=== PATIENT | male | born 1945 | race Caucasian/White ===

== ENCOUNTER 2020-08-05 03:00 | Emergency (ER) | payer MEDICARE, MEDICAID, SELFPAY ==
[2020-08-05] VITALS (16 sets, daily range): BP systolic 80–127; BP diastolic 49–60; PULSE 86–104; RESP 18; TEMP 36.5; O2SAT 91–95; BMI 26.3
--- NOTE | 2020-08-05 03:06 | ED.GENADULT ---
HPI - General Adult General Chief complaint: Recheck/Abnormal Lab/Rx Stated complaint: Decreased LOC low blood sugar Time Seen by Provider: 08/05/20 03:05 Source: patient and EMS Mode of arrival: EMS Limitations: no limitations History of Present Illness HPI narrative: Patient is a 75-year-old male an insulin-dependent diabetic who resides at a care facility across the street from the hospital brought in by EMS for concerns of hypoglycemia and inability to talk. He EMS reports they were called to the care facility secondary to the patient being unresponsive. Upon their arrival they found his blood sugar in the 30s. He received D10 which increased his blood sugar to the 140s. While he was recovering EMS reports that he became much more alert however was unable to speak. He could gesture to the paramedics that he was having problems speaking. Secondary to this they brought him to the emergency department. By the time he arrived here his symptoms have completely resolved. Patient states that he feels fine. He states that he took his normal dose of insulin last evening. He states that he did have dinner last evening. He is unsure why his blood sugar was a bit low this morning. Review of Systems Cardiovascular Cardiovascular: Denies chest pain and Denies dyspnea Respiratory Respiratory: Denies dyspnea Gastrointestinal Gastrointestinal: Denies abdominal pain Neurologic Comments: Problems speaking Endocrine Comments: Hypoglycemia Patient History Medical History Insulin dependent diabetes mellitus (Acute) Social History Smoking Status: Former smoker Exam Initial Vital Signs Initial Vital Signs: Vital Signs Temperature 97.7 F 08/05/20 03:07 Pulse Rate 90 08/05/20 03:07 Respiratory Rate 18 08/05/20 03:07 Blood Pressure 127/58 L 08/05/20 03:07 Pulse Oximetry 91 08/05/20 03:07 Const General: cooperative, comfortable and well developed Limitations: mental status not altered HENMT Head: normal to inspection and normocephalic Resp Effort & Inspection: normal respiratory effort Auscultation: clear to auscultation bilaterally Cardio Rate: regular rate Rhythm: regular rhythm Neuro General: patient alert, patient awake and patient oriented x3 Cognition: normal cognition Speech: speech normal Psych Appearance: grossly normal and well kempt Course Orders Ordered: ED Orders 11/01/20 03:23 Basic Metabolic Panel Stat Complete Blood Count AUTO DIFF Stat Vital Signs Vital signs: Vital Signs - 8 hr 08/05/20 03:07 08/05/20 04:03 08/05/20 04:04 Temperature 97.7 F Pulse Rate 90 95 H 93 H Respiratory Rate 18 Blood Pressure 127/58 L 85/52 L 92/53 L Pulse Oximetry 91 93 08/05/20 04:10 08/05/20 04:20 08/05/20 04:30 Temperature Pulse Rate 92 H 86 91 H Respiratory Rate Blood Pressure 80/49 L 104/51 L 99/50 L Pulse Oximetry 92 94 93 08/05/20 04:41 Temperature Pulse Rate 90 Respiratory Rate Blood Pressure 110/51 L Pulse Oximetry 94 Medical Decision Making Lab Data Lab results reviewed: Yes I reviewed the patient's lab results. Result diagrams: 08/05/20 03:23 08/05/20 03:23 Labs: Lab Results 08/05/20 08/05/20 Range/Units 03:23 03:23 WBC 8.0 (4.5-11.0) X10^3/uL RBC 4.12 L (4.5-5.9) X10^6/uL Hgb 10.9 L (13.5-17.5) g/dL Hct 35.0 L (41-53) % MCV 85.0 (80-100) fL MCH 26.5 (26-34) PG MCHC 31.2 (30-36) % RDW 17.2 H (11.6-14.8) % Plt Count 184 (150-400) X10^3/uL Neut % (Auto) 89.1 H (50-75) % Lymph % (Auto) 4.5 L (25-40) % [place] % (Auto) 3.0 (3-14) % Eos % (Auto) 1.8 L (2-4) % Baso % (Auto) 1.6 (0-2) % Neut # (Auto) 7200 H (3380-0720) /uL Lymph # (Auto) 400 L (9077-7618) /uL [place] # (Auto) 200 (0-900) /uL Eos # (Auto) 100 (0-450) /uL Baso # (Auto) 100 (0-100) /uL Sodium 137 (137-145) mmol/L Potassium 4.4 (3.4-5.1) mmol/L Chloride 106 (98-107) mmol/L Carbon Dioxide 25 (22-32) mmol/L BUN 38 H (9-20) mg/dL Creatinine 1.51 H (0.66-1.25) mg/dL Estimated GFR 45.4 L (>60) mL/min BUN/Creatinine Ratio 25.2 H (6-22) Glucose 174 H (80-110) mg/dL Calcium 8.8 (8.4-10.2) mg/dL Point of Care Testing Glucose POC 159 Point of care testing: Point of Care Testing Glucose POC 159 MDM Narrative Medical decision making narrative: Patient's blood sugar the 140s upon arrival. He was speaking appropriately. Alert oriented x3. GCS of 15. He states that he felt back to normal. He was given food to eat. We rechecked his blood sugar several times with the next couple hours and they were all greater than 150. Low suspicion for CVA. Will discharge patient back to his care facility. Discharge Plan Departure Patient Disposition: Home Clinical Impression: Hypoglycemia Instructions: Hypoglycemia Activity Restrictions/Additional Instructions: I recommend to continue all of your medications as directed to include your insulin at the sliding scale provided by your provider. Return to the emergency department for any new or worsening symptoms
[2020-08-05 03:33] LABS: Add Manual Diff / Slide Review NO; Basophils Absolute Auto 100 /uL (0-100); Basophils Percent Auto 1.6 % (0-2); Eosinophils Absolute Auto 100 /uL (0-450); Eosinophils Percent Auto 1.8 % (2-4); Hemoglobin 10.9 g/dL (13.5-17.5); Lymphocytes Absolute Auto 400 /uL (1100-4500); Lymphocytes Percent Auto 4.5 % (25-40); Mean Corpuscular HGB Conc 31.2 % (30-36); Mean Corpuscular Hemoglobin 26.5 PG (26-34); Monocytes Absolute Auto 200 /uL (0-900); Neutrophils Absolute Auto 7200 /uL (1500-7000); Neutrophils Percent Auto 89.1 % (50-75); Platelet Count 184 X10^3/uL (150-400); Red Blood Cell Count 4.12 X10^6/uL (4.5-5.9); Red Cell Distribution Width 17.2 % (11.6-14.8)
[2020-08-05 03:42] LABS: BUN Creatinine Ratio 25.2 (6-22); Blood Urea Nitrogen 38 mg/dL (9-20); Calcium 8.8 mg/dL (8.4-10.2); Carbon Dioxide 25 mmol/L (22-32); Chloride 106 mmol/L (98-107); Estimated Glomerular Filt Rate 45.4 mL/min (>60); Glucose 174 mg/dL (80-110); HEMOLYSIS < 15 (0-50); Potassium 4.4 mmol/L (3.4-5.1); Sodium 137 mmol/L (137-145)
== END 2020-08-05 06:20 | disposition home or self-care (01) ==
PROVIDERS: Emergency Provider Emergency Medicine
DX: E11.649 Type 2 diabetes mellitus with hypoglycemia without coma (principal)
CPT/HCPCS: 36415; 80048; 82962; 85025; 99283

== ENCOUNTER → 2020-08-15 10:19 | Outpatient (CLI) | payer MEDICARE, SELFPAY ==
[2020-08-15 12:26] LABS: Add Manual Diff / Slide Review NO; Basophils Absolute Auto 100 /uL (0-100); Eosinophils Absolute Auto 400 /uL (0-450); Hematocrit 30.3 % (41-53); Hemoglobin 9.7 g/dL (13.5-17.5); Lymphocytes Absolute Auto 1100 /uL (1100-4500); Mean Corpuscular Hemoglobin 26.6 PG (26-34); Mean Corpuscular Volume 83.2 fL (80-100); Monocytes Absolute Auto 600 /uL (0-900); Monocytes Percent Auto 9.4 % (3-14); Neutrophils Absolute Auto 4000 /uL (1500-7000); Neutrophils Percent Auto 64.6 % (50-75); Platelet Count 208 X10^3/uL (150-400); Red Blood Cell Count 3.64 X10^6/uL (4.5-5.9); Red Cell Distribution Width 17.1 % (11.6-14.8); White Blood Cell Count 6.2 X10^3/uL (4.5-11.0)
[2020-08-15 12:49] LABS: Prothrombin Time 73.7 SECONDS (10.1-12.7)
[2020-08-15 12:51] LABS: Alanine Aminotransferase 14 IU/L (<50); Albumin 3.5 g/dL (3.5-5.0); Alkaline Phosphatase 74 U/L (38-126); Aspartate Aminotransferase 18 IU/L (17-59); BUN Creatinine Ratio 17.5 (6-22); Bilirubin Total 0.3 mg/dL (0.2-1.3); Blood Urea Nitrogen 48 mg/dL (9-20); C-Reactive Protein Quant 2.5 mg/dL (<1.0); Calcium 8.9 mg/dL (8.4-10.2); Carbon Dioxide 20 mmol/L (22-32); Chloride 108 mmol/L (98-107); Estimated Glomerular Filt Rate 22.7 mL/min (>60); Globulin 3.6 g/dL (1.7-4.1); Glucose 210 mg/dL (80-110); HEMOLYSIS < 15 (0-50); Sodium 135 mmol/L (137-145); Total Protein 7.1 g/dL (6.3-8.2)
[2020-08-15 13:25] LABS: Potassium 7.5 mmol/L (3.4-5.1)
[2020-08-15 13:26] LABS: INR 6.5 (0.9-1.3)
== END ==
PROVIDERS: Visit Provider Family Medicine
DX: Z79.01 Long term (current) use of anticoagulants (principal)
CPT/HCPCS: 36415; 80053; 85025; 85610; 86140

== ENCOUNTER 2020-08-15 14:04 | Inpatient (IN) | payer MEDICARE, SELFPAY ==
[2020-08-15 14:13] VITALS: BP 136/67; PULSE 70; RESP 18; TEMP 36.6; O2SAT 100
--- NOTE | 2020-08-15 14:24 | DI.RAD.S_ITS ---
PROCEDURE: XR CHEST 1V INDICATIONS: hyperkalemia TECHNIQUE: One view of the chest was acquired. COMPARISON: None. FINDINGS: Surgical changes and devices: None. Lungs and pleura: Lungs are clear. No pleural effusions or pneumothorax. Mediastinum: Mediastinal contours appear normal. Heart size is normal. Bones and chest wall: No suspicious bony lesions. Overlying soft tissues appear unremarkable. IMPRESSION: No acute process. Dictated by: Jake Bennett M.D. on 08/15/2020 at 14:51 Approved by: Jake Bennett M.D. on 08/15/2020 at 14:51
--- NOTE | 2020-08-15 14:27 | ED.RECABL ---
HPI - Recheck/Abnormal Lab/Rx General Chief Complaint: Recheck/Abnormal Lab/Rx Stated Complaint: abnormal labs, sent to ER Time Seen by Provider: 08/15/20 14:23 Source: patient and other Mode of arrival: Ambulatory Limitations: no limitations History of Present Illness HPI narrative: This is a 75-year-old male who comes to emergency department for abnormal labs. Patient had his labs drawn after follow up with his infectious disease physician. He states that they were trying to evaluate if they should stop antibiotics. Some of them have already been stopped, he is continuing to take 1 antibiotic currently. This was for a ulcer that required surgical treatment for gangrene on his left and he has a small ulcer on his right heel. Patient states that he has not had any issues with elevated potassium or renal dysfunction in the past. He states he did have stents placed in his left lower extremity prior to his surgery in April and then had his surgery. Patient denies any fevers, no chest pain or shortness of breath, no nausea, no vomiting no other GI or urinary symptoms. Patient is on warfarin for history of OR, takes antihypertensives, atorvastatin and metoclopramide. He also has an insulin-dependent diabetic and is on Lantus and Novolin. He denies tobacco he quit in April. His primary care physician is Dr. Jimenez. 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 No JVD. RESPIRATORY: Breath sounds equal bilaterally, no wheezes rales or rhonchi. ABDOMEN: Soft, nontender. Normoactive bowel sounds all 4 quadrants. No guarding or rebound, rigidity, no mass : No CVA tenderness EXTREMITIES: Normal range of motion, no clubbing or edema. Neurovascularly intact NEUROLOGICAL: Cranial nerves II through XII grossly intact. Moving all extremities SKIN: Warm, dry, no petechiae. Patient has bandages on his right lower extremity, he has a for a/question on his left lower extremity. Initial Vital Signs Initial Vital Signs: Vital Signs Temperature 97.9 F 08/15/20 14:13 Pulse Rate 70 08/15/20 14:13 Respiratory Rate 18 08/15/20 14:13 Blood Pressure 136/67 08/15/20 14:13 Pulse Oximetry 100 08/15/20 14:13 Scores GCS [place] coma scale eye opening: Spontaneous [place] coma scale verbal response: Orientated [place] coma scale motor response: Obey commands [place] coma scale total score: 15 Course Orders Ordered: ED Orders 08/15/20 14:10 EKG-12 Lead Routine 08/15/20 14:24 XR chest 1V Stat 08/15/20 15:20 Basic Metabolic Panel Stat Complete Blood Count AUTO DIFF Stat Magnesium Stat Partial Thromboplastin Time Stat Prothrombin Time INR Stat Thyroid Stimulating Hormone Stat Troponin & CK Cardiac Panel Stat Sodium Bicarbonate 50 meq/ (Sodium Chloride) 1,050 mls @ 125 mls/hr IV CONT BRIDGETTE Last Admin: 08/15/20 16:07 Dose: 125 mls/hr Documented by: GEOFF Discontinued Medications Dextrose (D50w) 25 gm IV NOW ONE Stop: 08/15/20 15:47 Last Admin: 08/15/20 16:07 Dose: 25 gm Documented by: GEOFF Sodium Chloride (Normal Saline 0.9%) 1,000 mls @ 1,000 mls/hr IV BOLUS ONE Stop: 08/15/20 15:22 Last Infusion: 08/15/20 16:49 Dose: 0 mls/hr Documented by: Admin: 08/15/20 15:29 Dose: 1,000 mls/hr Documented by: GEOFF Calcium Gluconate 4.65 meq/ (Sodium Chloride) 60 mls @ 180 mls/hr IV NOW ONE Stop: 08/15/20 14:45 Last Infusion: 08/15/20 16:17 Dose: 0 mls/hr Documented by: Admin: 08/15/20 15:29 Dose: 180 mls/hr Documented by: GEOFF Sodium Chloride (Normal Saline 0.9%) 1,000 mls @ 1,000 mls/hr IV BOLUS ONE Stop: 08/15/20 17:42 Last Admin: 08/15/20 17:27 Dose: Not Given Documented by: GEOFF Insulin Human Regular (Humulin R) 5 unit IV NOW ONE Stop: 08/15/20 15:47 Last Admin: 08/15/20 16:06 Dose: 5 unit Documented by: GEOFF Cosigned by: IRINAONEEulalia Sodium Polystyrene Sulfonate (Kayexalate) 30 gm PO NOW ONE Stop: 08/15/20 15:47 Last Admin: 08/15/20 16:07 Dose: 30 gm Documented by: GEOFF Reevaluation(s) Reevaluation #1: Patient has no additional changes in department, he does need to urinate. We did discuss his lab findings today and that both his supratherapeutic INR is dangerous his if he falls he could easily have a bleed or spontaneous bleed, we also discussed his elevated creatinine and potassium are dangerous and if he were to go home today as he does not initially wish to be hospitalized he would likely over the next several days. Consultations Consultation #1: Dr. Lopez accepts for observation. Vital Signs Vital signs: Vital Signs - 8 hr 08/15/20 14:13 Temperature 97.9 F Pulse Rate 70 Respiratory Rate 18 Blood Pressure 136/67 Pulse Oximetry 100 MDM - Recheck/Abnormal Lab/Rx Lab Data Result diagrams: 08/15/20 15:20 08/15/20 15:20 Labs: Lab Results 08/15/20 08/15/20 08/15/20 Range/Units 15:20 15:20 15:20 WBC 6.7 (4.5-11.0) X10^3/uL RBC 3.59 L (4.5-5.9) X10^6/uL Hgb 9.6 L (13.5-17.5) g/dL Hct 29.7 L (41-53) % MCV 82.8 (80-100) fL MCH 26.6 (26-34) PG MCHC 32.2 (30-36) % RDW 17.0 H (11.6-14.8) % Plt Count 196 (150-400) X10^3/uL Neut % (Auto) 56.8 (50-75) % Lymph % (Auto) 23.3 L (25-40) % [place] % (Auto) 11.0 (3-14) % Eos % (Auto) 7.6 H (2-4) % Baso % (Auto) 1.3 (0-2) % Neut # (Auto) 3800 (9449-3480) /uL Lymph # (Auto) 1600 (6743-2232) /uL [place] # (Auto) 700 (0-900) /uL Eos # (Auto) 500 H (0-450) /uL Baso # (Auto) 100 (0-100) /uL PT 75.8 H (10.1-12.7) SECONDS INR 6.7 H* (0.9-1.3) APTT 58 H (26.4-36.2) SECONDS Sodium 135 L (137-145) mmol/L Potassium 6.3 H* D (3.4-5.1) mmol/L Chloride 108 H (98-107) mmol/L Carbon Dioxide 23 (22-32) mmol/L BUN 48 H (9-20) mg/dL Creatinine 2.68 H (0.66-1.25) mg/dL Estimated GFR 23.4 L (>60) mL/min BUN/Creatinine Ratio 17.9 (6-22) Glucose 171 H (80-110) mg/dL Calcium 8.9 (8.4-10.2) mg/dL Magnesium 1.3 L (1.6-2.3) mg/dL Total Creatine Kinase 49 L (55-170) U/L CK-MB (CK-2) TNP CK-MB (CK-2) Rel Index TNP Troponin I 0.016 (0.01-0.034) ng/mL TSH (0.47-4.68) uIU/mL 08/15/20 Range/Units 15:20 WBC (4.5-11.0) X10^3/uL RBC (4.5-5.9) X10^6/uL Hgb (13.5-17.5) g/dL Hct (41-53) % MCV (80-100) fL MCH (26-34) PG MCHC (30-36) % RDW (11.6-14.8) % Plt Count (150-400) X10^3/uL Neut % (Auto) (50-75) % Lymph % (Auto) (25-40) % [place] % (Auto) (3-14) % Eos % (Auto) (2-4) % Baso % (Auto) (0-2) % Neut # (Auto) (3996-4307) /uL Lymph # (Auto) (7860-3836) /uL [place] # (Auto) (0-900) /uL Eos # (Auto) (0-450) /uL Baso # (Auto) (0-100) /uL PT (10.1-12.7) SECONDS INR (0.9-1.3) APTT (26.4-36.2) SECONDS Sodium (137-145) mmol/L Potassium (3.4-5.1) mmol/L Chloride (98-107) mmol/L Carbon Dioxide (22-32) mmol/L BUN (9-20) mg/dL Creatinine (0.66-1.25) mg/dL Estimated GFR (>60) mL/min BUN/Creatinine Ratio (6-22) Glucose (80-110) mg/dL Calcium (8.4-10.2) mg/dL Magnesium (1.6-2.3) mg/dL Total Creatine Kinase (55-170) U/L CK-MB (CK-2) CK-MB (CK-2) Rel Index Troponin I (0.01-0.034) ng/mL TSH 3.83 (0.47-4.68) uIU/mL Urine Dip Bedside Urine Glucose 250 mg/dl Bedside Urine Bilirubin - Negative Bedside Urine Ketone - Negative Urine Specific [employer] 1.025 Bedside Urine Occult Blood - Negative Bedside Urine pH 6.0 Bedside Urine Protein - Negative Bedside Urine Urobilinogen - Negative Bedside Urine Nitrite - Negative Bedside Urine Leukocytes - Negative Esterase Imaging Data Chest x-ray: Radiologist's Impression: [address] [address] XRay Report Signed Patient: Geovani Delaney EMR#: [id number] : 6Acct:[id number] Age/Sex: 75 / MDate of Service: 08/15/20 Loc: ED Accession Number: [id number] Procedure: XR chest 1V Ordering Provider: Leonor Hanson D.O. PROCEDURE: XR CHEST 1V INDICATIONS: hyperkalemia TECHNIQUE: One view of the chest was acquired. COMPARISON: None. FINDINGS: Surgical changes and devices: None. Lungs and pleura: Lungs are clear. No pleural effusions or pneumothorax. Mediastinum: Mediastinal contours appear normal. Heart size is normal. Bones and chest wall: No suspicious bony lesions. Overlying soft tissues appear unremarkable. IMPRESSION: No acute process. Dictated by: Jake Bennett M.D. on 08/15/2020 at 14:51 Approved by: Jake Bennett M.D. on 08/15/2020 at 14:51 ECG Data Attestation: I personally reviewed and interpreted this ECG as follows: Interpretation: Atrial rhythm, rate of 78, TN 122, QRS of 116 and QTC of 430. Patient has to wave inversion in the 1 aVL, no elevation clearly appreciated questionable change versus artifact in V1 2 and 3. Patient does not have peaked T-waves throughout. Patient has prior EKG from 07/10/2020 does show Q-wave T-wave inversion in 1 and aVL. He also has new changes in V1 2 and 3 had a right bundle branch block with left anterior fascicular block on prior EKG. MDM Narrative Medical decision making narrative: Discussed with patient we will repeat labs to evaluate for lab flat patient's elevation in creatinine I suspect this is a true elevation. We did discuss patient's code status he is comfortable with CPR and electric shock but does not wish for intubation. He is okay with IV medications. There was some delay in obtaining labs as he was a difficult and lab draw. Patient was given your fluids, calcium gluconate potassium is moving on recheck but he is also still quite elevated at 6.3 with supratherapeutic INR and acute on chronic renal failure. Patient was given 1 amp of bicarb, insulin with the glucose, and sodium bicarb. Discussed patient's DNR status he states he is okay with coding were CPR and electric shock but does not wish to be intubated. He did continue to make urine in the department had 150 cc out here in the ED. he does have some nonspecific EKG changes. Discussed with Dr. Lopez who accepts for observation. Dr. Lopez does ask that we obtain records and we were able to get discharge summary which was sent with patient upstairs. Critical Care Time Critical Care Time Critical Care Time: Yes Total Critical Care Time: 75 Attestation: The high probability of a clinically significant, sudden or life threatening deterioration of the [cardiac/renal] system(s) required my full and direct attention, intervention and personal management. The aggregate critical care time was [] minutes. This time is in addition to time spent performing reported procedures but includes the following: [x] Data Review and interpretation [x] Patient assessment and monitoring of vital signs [x] Documentation [x] Medication orders and management Discharge Plan Departure Patient Disposition: Admitted as Observation Clinical Impression: Acute hyperkalemia, Acute on chronic kidney failure, Supratherapeutic INR Discharge Date/Time: 08/15/20 17:29 Admit Date/Time: 08/15/20 16:59 Admit Provider: Reginaldo Lopez
[2020-08-15 15:27] LABS: Add Manual Diff / Slide Review NO; Basophils Absolute Auto 100 /uL (0-100); Basophils Percent Auto 1.3 % (0-2); Eosinophils Absolute Auto 500 /uL (0-450); Eosinophils Percent Auto 7.6 % (2-4); Hematocrit 29.7 % (41-53); Hemoglobin 9.6 g/dL (13.5-17.5); Lymphocytes Absolute Auto 1600 /uL (1100-4500); Lymphocytes Percent Auto 23.3 % (25-40); Mean Corpuscular HGB Conc 32.2 % (30-36); Mean Corpuscular Hemoglobin 26.6 PG (26-34); Mean Corpuscular Volume 82.8 fL (80-100); Monocytes Absolute Auto 700 /uL (0-900); Neutrophils Absolute Auto 3800 /uL (1500-7000); Neutrophils Percent Auto 56.8 % (50-75); Platelet Count 196 X10^3/uL (150-400); Red Blood Cell Count 3.59 X10^6/uL (4.5-5.9); White Blood Cell Count 6.7 X10^3/uL (4.5-11.0)
[2020-08-15] MEDS: CALCIUM GLUCONATE 4.65 MEQ in SODIUM CHLORIDE 0.9% 50 ML 180 ML IV (15:29)
[2020-08-15] MEDS: SODIUM CHLORIDE 0.9% 1,000 ML 1000 ML IV (15:29)
[2020-08-15 15:35] LABS: Prothrombin Time 75.8 SECONDS (10.1-12.7)
[2020-08-15 15:37] LABS: PTT Partial Thromboplastin Tim 58 SECONDS (26.4-36.2)
[2020-08-15 15:38] LABS: BUN Creatinine Ratio 17.9 (6-22); Blood Urea Nitrogen 48 mg/dL (9-20); Calcium 8.9 mg/dL (8.4-10.2); Carbon Dioxide 23 mmol/L (22-32); Chloride 108 mmol/L (98-107); Creatine Kinase 49 U/L (55-170); Estimated Glomerular Filt Rate 23.4 mL/min (>60); Glucose 171 mg/dL (80-110); HEMOLYSIS < 15 (0-50); Magnesium 1.3 mg/dL (1.6-2.3); Sodium 135 mmol/L (137-145)
[2020-08-15 15:41] LABS: INR 6.7 (0.9-1.3); Potassium 6.3 mmol/L (3.4-5.1)
--- NOTE | 2020-08-15 15:44 | PC.NURSE ---
no complaints at this time. Very eager to get back home.
[2020-08-15 15:50] LABS: Troponin I 0.016 ng/mL (0.01-0.034)
[2020-08-15] MEDS: INSULIN REGULAR 100 UNIT/ML 3 ML VIAL IV (16:06)
[2020-08-15] MEDS: SODIUM POLYSTYRENE SULFON/SORB 15 GM/60 ML CUP 30 GM PO (16:07)
[2020-08-15] MEDS: SODIUM BICARB 8.4% VIAL 50 MEQ in SODIUM CHLORIDE 0.9% 1,000 ML 125 MEQ IV (16:07)
[2020-08-15] MEDS: DEXTROSE 50 % IN WATER 25 GM/50 ML SYRINGE IV (16:07)
[2020-08-15 16:55] LABS: Thyroid Stimulating Hormone 3.83 uIU/mL (0.47-4.68)
[2020-08-15 17:56] LABS: COVID19 -Nasal RAPID Negative (Negative)
[2020-08-15 18:18] VITALS: BMI 24.5
[2020-08-15 18:24] VITALS: BP 142/79; PULSE 84; RESP 20; TEMP 36.4; O2SAT 100
[2020-08-15] MEDS: MAGNESIUM SULFATE 2 GM/50 ML PIGGYBACK IV (20:08)
--- NOTE | 2020-08-15 21:33 | PC.NURSE ---
Dsg change to bilateral feet. Left w/ 4x4 gauze & kerlix, over a fifty cent piece size open wound. (appears shallow). Right w/ larger open area w/small amount oozing. 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 Continue to monitor.
[2020-08-15 22:17] VITALS: BP 126/72; PULSE 80; RESP 18; TEMP 36.6; O2SAT 96
--- NOTE | 2020-08-15 22:33 | PM.HP.1 ---
History of Present Illness History of Present Illness Date Patient Seen: 08/15/20 Time Patient Seen: 20:02 Chief complaint: abnormal labs, sent to ER Narrative: Pt is a 75 year old male who came to the ER c/o diarrhea up to 10 x's liquid stools per day. Patient was found have CESARIO and hyperkalemia and hypo magnesium. Patient is alert and orientated and resting comfortably in bed at this time. Patient states that he spent 5 weeks in [facility] for wound care and on a wound VAC and has been back at the [facility] for the past 9 days with his who has beginning stages of dementia. Patient states that he had a normal bowel movement this morning but has a decreased appetite over the past several days he had a banana & fudgecicle for breakfast denies Pain, nausea vomiting has had no diarrhea today denies changes in vision, headache, weakness, chest pain, palpitation, shortness of breath, no abdominal pain, dysuria frequency urgency. Pt had been C Diff positive in early aug and was placed on Vancomy x 10 days. which he completed prior to ER visit today. Patient was being treated for left diabetic foot infection ulceration with cellulitis, necrosis of the Achilles and suspected osteo of the left calcaneus. Culture showed GP G strep and Staph aureus on 04/12/2020 blood culture on 04/11/2021 at 0 4. Patient was revascularized on 04/17 by IR and had debridement and wound VAC placed on 04/18 patient had completed 6 weeks of IV antibiotics Ancef on May 30 for this wound. Patient's infectious disease doctor is Dr. Estrella, PCP Dr. Jimenez, and Dr. Dr. Moon Podiatry. Pt came to the emergency department for abnormal labs. Patient had his labs drawn after follow up with his infectious disease physician. He states that they were trying to evaluate if they should stop antibiotics. Some of them have already been stopped, he is continuing to take 1 antibiotic currently. This was for a ulcer that required surgical treatment for gangrene on his left and he has a small ulcer on his right heel. Patient states that he has not had any issues with elevated potassium or renal dysfunction in the past. He states he did have stents placed in his left lower extremity prior to his surgery in April and then had his surgery. Patient denies any fevers, no chest pain or shortness of breath, no nausea, no vomiting no other GI or urinary symptoms. Patient is on warfarin for history of TN, takes antihypertensives, atorvastatin and metoclopramide. He also has an insulin-dependent diabetic and is on Lantus and Novolin. He denies tobacco he quit in April. His primary care physician is Dr. Jimenez. Patient History Medical History (Updated 08/15/20 @ 23:18 by MECHE Reagan) Acute osteomyelitis of left calcaneus (Acute) Amputation of fourth toe, left, traumatic (Acute) Apical mural thrombus following TN (Acute) Cancer (Acute) Cigarette nicotine dependence without complication (Acute) Diabetic gastropathy (Acute) Eccrine porocarcinoma of skin (Acute) Hyperlipidemia associated with type 2 diabetes mellitus (Acute) Insulin dependent diabetes mellitus (Acute) Ischemic cardiomyopathy (Acute) Right hip pain (Acute) Right knee pain (Acute) Stenosis of artery of left lower extremity (Acute) Surgical History (Updated 08/15/20 @ 23:07 by MECHE Reagan) Amputation of left index finger (Acute) Status post excisional debridement (Acute) Family & Social History Family History (Updated 08/15/20 @ 23:00 by MECHE Reagan) Mother Diabetes mellitus Social History: household members spouse Safety & Behavioral: Feels Safe in Current Yes Environment Suicidal Ideation Description None Suicide Plan Description No Plan Tobacco & Substance use: Smoking Status Former smoker alcohol intake frequency holiday/special occasion Substance Use Type does not use Meds Home Medications and Allergies Home Medications Medication Instructions Recorded Confirmed Type atorvastatin 20 mg PO DAILY 08/15/20 08/15/20 History carvedilol 6.25 mg PO BID 08/15/20 08/15/20 History clopidogrel 75 mg PO DAILY 08/15/20 08/15/20 History ferrous sulfate 325 mg PO BID 08/15/20 08/15/20 History insulin glargine [Lantus Solostar 1 unit SUBCUT PRN PRN MDD PRN 08/15/20 08/15/20 History U-100 Insulin] insulin lispro [Humalog KwikPen 1 unit SUBCUT ACHS 08/15/20 08/15/20 History Insulin] lisinopril 5 mg PO QAM 08/15/20 08/15/20 History loratadine [Allergy Relief 10 mg PO PRN PRN 08/15/20 08/15/20 History (loratadine)] melatonin 3 mg PO BEDTIME PRN MDD prn 08/15/20 08/15/20 History metoclopramide HCl 10 mg PO BID 08/15/20 08/15/20 History nicotine 14 mg TRANSDERMAL DAILY 08/15/20 08/15/20 History pen needle,diabetic dual safty [BD 08/15/20 08/15/20 History AutoShield Duo Pen Needle] Allergies Allergy/AdvReac Type Severity Reaction Status Date / Time No Known Drug Allergies Allergy Verified 08/05/20 05:07 Review of Systems Review of Systems ROS: Yes All systems reviewed with the patient and are negative except as otherwise documented Exam Vital Signs (past 8 hours): - 08/15/20 18:24 08/15/20 22:17 Temperature 97.6 F 97.9 F Pulse Rate 84 80 Respiratory Rate 20 18 Blood Pressure 142/79 H 126/72 Pulse Oximetry 100 96 Oxygen Delivery Method Room Air Narrative Exam Narrative: GENERAL: Alert and oriented male resting bed, in no acute distress at this time HEENT: Head normocephalic, atraumatic, EOMI, pupils reactive, face symmetric, moist mucous membranes NECK: Supple, full range of motion no JVD CARDIOVASCULAR: Regular rate and rhythm without murmurs, rubs or gallops. RESPIRATORY: Breath sounds equal bilaterally, no wheezes rales or rhonchi. ABDOMEN: Soft, nontender. Normoactive bowel sounds all 4 quadrants. No guarding or rebound, rigidity, no mass : No CVA tenderness EXTREMITIES: Normal range of motion, left foot heel posterior lateral aspect length 5.1 cm by with of 5.6 cm and a depth of 0.6 cm with open wound/ulceration with no surrounding erythema or any purulence from wound, right heel posterior ulceration 1.7 cm in length 1.2 cm in with 0.2 cm in depth. Note amputation of left 4th and 5th digits positive +2 edema to the left foot pulses intact bilaterally, patient has loss of pain bilaterally and decreased sensation in the left foot, present in the right foot. Note amputation of left index finger. NEUROLOGICAL: Cranial nerves II through XII grossly intact. Moving all extremities SKIN: Warm, dry, scaling, patient has noted bruising present to bilateral hands and wrist. Note left foot foot is cooler to touch than right. Initial Vital Signs Objective Labs Result Diagrams: 08/15/20 15:20 08/15/20 15:20 Labs: Laboratory Results - last 24 hr 08/15/20 08/15/20 08/15/20 15:20 15:20 15:20 WBC 6.7 RBC 3.59 L Hgb 9.6 L Hct 29.7 L MCV 82.8 MCH 26.6 MCHC 32.2 RDW 17.0 H Plt Count 196 Neut % (Auto) 56.8 Lymph % (Auto) 23.3 L [place] % (Auto) 11.0 Eos % (Auto) 7.6 H Baso % (Auto) 1.3 Neut # (Auto) 3800 Lymph # (Auto) 1600 [place] # (Auto) 700 Eos # (Auto) 500 H Baso # (Auto) 100 PT 75.8 H INR 6.7 H* APTT 58 H Sodium 135 L Potassium 6.3 H* D Chloride 108 H Carbon Dioxide 23 BUN 48 H Creatinine 2.68 H Estimated GFR 23.4 L BUN/Creatinine Ratio 17.9 Glucose 171 H Calcium 8.9 Magnesium 1.3 L Total Creatine Kinase 49 L CK-MB (CK-2) TNP CK-MB (CK-2) Rel Index TNP Troponin I 0.016 TSH COVID-19 PCR 08/15/20 08/15/20 15:20 17:20 WBC RBC Hgb Hct MCV MCH MCHC RDW Plt Count Neut % (Auto) Lymph % (Auto) [place] % (Auto) Eos % (Auto) Baso % (Auto) Neut # (Auto) Lymph # (Auto) [place] # (Auto) Eos # (Auto) Baso # (Auto) PT INR APTT Sodium Potassium Chloride Carbon Dioxide BUN Creatinine Estimated GFR BUN/Creatinine Ratio Glucose Calcium Magnesium Total Creatine Kinase CK-MB (CK-2) CK-MB (CK-2) Rel Index Troponin I TSH 3.83 COVID-19 PCR Negative Assessment & Plan Assessment & Plan narrative: 1. Acute kidney injury related to diarrhea acute on chronic CKD stage 3 present on admission -upon admission 97/52, 100, 18, 95%, sodium 135, potassium 6.3, BUN 48, creatinine 2.68, estimated GFR 23.4, glucose 171, Mag 1.31, total creatinine kinase 49, and CRP 2.5, INR 6.7. -patient given Fluids: sodium bicarb bolus, D5W, calcium gluconate 2. Hypokalemia secondary to dehydration acute on chronic, present on admission -potassium 6.3, Kayexalate, NS, repeat labs in a.m. 3. Hypo magnesium secondary to dehydration acute on chronic, present on admission -2 g magnesium rider provided Dehydration secondary to diarrhea 4. Left foot heel posterior ulceration/wound secondary to uncontrolled type 2 diabetes acute on chronic present on admission -continue dressing changes -wound care consult ordered -reviewed records of Infectious Disease, Podiatry, and [facility] facility. 5. Super therapeutic INR -INR 6.7, PTT 75.8, APTT 58 -hold patients coumadin -vitamin K 5 mg IV -repeat labs in a.m. -patient on fall risk protocol 5. Diabetes type 2 insulin dependent uncontrolled related to CKD stage 3 and foot ulceration acute on chronic, present on admission -glucose 210, A1c 9.6 -patient given R insulin -patient to continue evening Lantus dose, and NovoLog sliding scale -blood sugar to be checked before meals and at bedtime -I & O Daily 6. Dehydration related to diarrhea resulting in CESARIO secondary to CKD stage 3 acute on chronic, present on admission -possible C diff reinfection -diarrhea has resolved, no further events. -recent prior history of C diff with treatment of vancomycin times 10 days, query C diff reinfection, stool culture pending -fluid rehydration 7. Hypertension controlled chronic present on admission -patient to continue home meds VTE: None - pt on plavix (did not hold due to at least min 3 day half life, and INR not appropriate for monitoring) Fall Risk Protocol Diet: Diabetic carb restrictive. Patient was admitted with acute kidney injury related to diarrhea secondary to chronic kidney disease stage 3, hypokalemia, hypo magnesium supratherapeutic INR. With comorbidities of bilateral foot ulcerations and hypertension, and recent positive C diff infection with vancomycin antibiotic. Patient failed outpatient medical care requiring acute medical hospital management. Scores GCS [place] coma scale eye opening: Spontaneous [place] coma scale verbal response: Orientated [place] coma scale motor response: Obey commands [place] coma scale total score: 15 Quality VTE Deep Vein Thrombosis/Pulmonary Embolism Present on Admission: No
[2020-08-15 22:38] LABS: Hemoglobin A1C% w Est Avg Glu 9.6 % (4.0-6.0)
[2020-08-16] MEDS: MELATONIN 3 MG TABLET PO (00:12)
[2020-08-16] MEDS: FERROUS SULFATE 325 MG TABLET PO ×2 (00:12→08:53)
[2020-08-16] MEDS: ATORVASTATIN 20 MG TABLET PO (00:12)
[2020-08-16] MEDS: INSULIN GLARGINE 100 UNIT/ML 10ML VIAL 25 UNIT SUBCUT (00:13)
[2020-08-16] MEDS: PHYTONADIONE (VIT K1) 5 MG in DEXTROSE 5 % IN WATER 50 ML 101 ML IV (03:40)
[2020-08-16] MEDS: SODIUM BICARB 8.4% VIAL 50 MEQ in SODIUM CHLORIDE 0.9% 1,000 ML 125 MEQ IV (03:45)
[2020-08-16 06:00] VITALS: BP 110/64; PULSE 76; RESP 16; TEMP 36.7; O2SAT 96
[2020-08-16 07:40] VITALS: O2SAT 96
[2020-08-16 08:37] VITALS: BP 135/66; PULSE 65; RESP 16; TEMP 36.2; O2SAT 98
[2020-08-16 08:40] LABS: INR 2.9 (0.9-1.3); Prothrombin Time 32.7 SECONDS (10.1-12.7)
[2020-08-16 08:51] LABS: BUN Creatinine Ratio 18.2 (6-22); Blood Urea Nitrogen 40 mg/dL (9-20); Calcium 8.3 mg/dL (8.4-10.2); Carbon Dioxide 22 mmol/L (22-32); Chloride 112 mmol/L (98-107); Estimated Glomerular Filt Rate 29.4 mL/min (>60); Glucose 193 mg/dL (80-110); HEMOLYSIS < 15 (0-50); Sodium 136 mmol/L (137-145)
[2020-08-16 08:53] LABS: Potassium 5.4 mmol/L (3.4-5.1)
[2020-08-16] MEDS: CLOPIDOGREL 75 MG TABLET PO (08:53)
[2020-08-16] MEDS: carvediloL 3.125 MG TABLET 6.25 MG PO (08:53)
[2020-08-16] MEDS: NICOTINE 14 PATCH 14 MG TOP (08:53)
[2020-08-16 08:55] LABS: Albumin 2.9 g/dL (3.5-5.0); BUN Creatinine Ratio 18.3 (6-22); Blood Urea Nitrogen 39 mg/dL (9-20); Carbon Dioxide 22 mmol/L (22-32); Chloride 112 mmol/L (98-107); Estimated Glomerular Filt Rate 30.5 mL/min (>60); Glucose 187 mg/dL (80-110); HEMOLYSIS < 15 (0-50); Magnesium 1.5 mg/dL (1.6-2.3); Phosphorous 3.3 mg/dL (2.3-3.7); Sodium 136 mmol/L (137-145)
[2020-08-16 08:58] LABS: Potassium 5.4 mmol/L (3.4-5.1)
[2020-08-16] MEDS: INSULIN ASPART 100 UNIT/ML INSULN PEN SUBCUT (09:00)
--- NOTE | 2020-08-16 09:32 | PM.DS.1 ---
History of Present Illness History of Present Illness Date Patient Seen: 08/16/20 Time Patient Seen: 09:32 Chief complaint: abnormal labs, sent to ER Narrative: As per HE Reagan: Pt is a 75 year old male who came to the ER c/o diarrhea up to 10 x's liquid stools per day. Patient was found have CESARIO and hyperkalemia and hypo magnesium. Patient is alert and orientated and resting comfortably in bed at this time. Patient states that he spent 5 weeks in [facility] for wound care and on a wound VAC and has been back at the [facility] for the past 9 days with his who has beginning stages of dementia. Patient states that he had a normal bowel movement this morning but has a decreased appetite over the past several days he had a banana & fudgecicle for breakfast denies Pain, nausea vomiting has had no diarrhea today denies changes in vision, headache, weakness, chest pain, palpitation, shortness of breath, no abdominal pain, dysuria frequency urgency. Pt had been C Diff positive in early aug and was placed on Vancomy x 10 days. which he completed prior to ER visit today. Patient was being treated for left diabetic foot infection ulceration with cellulitis, necrosis of the Achilles and suspected osteo of the left calcaneus. Culture showed GP G strep and Staph aureus on 04/12/2020 blood culture on 04/11/2021 at 0 4. Patient was revascularized on 04/17 by IR and had debridement and wound VAC placed on 04/18 patient had completed 6 weeks of IV antibiotics Ancef on May 30 for this wound. Patient's infectious disease doctor is Dr. Estrella, PCP Dr. Jimenez, and Dr. Dr. Moon Podiatry. Pt came to the emergency department for abnormal labs. Patient had his labs drawn after follow up with his infectious disease physician. He states that they were trying to evaluate if they should stop antibiotics. Some of them have already been stopped, he is continuing to take 1 antibiotic currently. This was for a ulcer that required surgical treatment for gangrene on his left and he has a small ulcer on his right heel. Patient states that he has not had any issues with elevated potassium or renal dysfunction in the past. He states he did have stents placed in his left lower extremity prior to his surgery in April and then had his surgery. Patient denies any fevers, no chest pain or shortness of breath, no nausea, no vomiting no other GI or urinary symptoms. Patient is on warfarin for history of [place], takes antihypertensives, atorvastatin and metoclopramide. He also has an insulin-dependent diabetic and is on Lantus and Novolin. He denies tobacco he quit in April. His primary care physician is Dr. Jimenez. Discharge Providers Provider Date of admission: 08/15/20 16:59 Discharge Date: 08/16/20 Consults: 08/15/20 21:25 Consult to Dietitian, Adult Routine Comment: Reason For Exam: Diabetic Type II with foot ulcerations Consult to Physical Therapy Evaluate & Treat Comment: Physician Instructions: Evaluate and Treat 08/15/20 21:42 Consult to Discharge Planning Routine Comment: 08/15/20 21:51 Consult to Wound Care Routine Comment: Consulting Provider: [facility] Discharge provider: Reginaldo Lopez DO Summary Hospital Course Discharge Diagnosis: 1. Acute kidney injury on chronic CKD stage 3, present on admission, improved 2. Hyperkalemia, acute, present on admission 3. Hypomagnesemia, acute, present on admission 4. Left foot heel posterior ulceration, chronic, present on admission 5. Supratherapeutic INR, present on admission, resolved. 5. Diabetes type 2 insulin dependent uncontrolled related to CKD stage 3 and foot ulceration acute on chronic, present on admission 6. Dehydration related to diarrhea resulting in CESARIO secondary to CKD stage 3 acute on chronic, present on admission 7. Hypertension controlled chronic present on admission Hospital Course: Geovani adams is a 75-year-old male with a past medical history of diabetes, hypertension, CAD, CKD stage 3, and recent left heel ulceration with antibiotic treatment complicated by C. difficile diarrhea. He was recommended to go to the ER after lab work at [facility] showed severe hyperkalemia. He had been having recent diarrhea over the preceeding two - three days. His admission labs showed a Cr of 2.75 up from approximately 1 about a week prior. Potassium was 7.5. He was given calcium, d50, insulin and fluids with improvement to 6.3. He was admitted for continued fluids and rehydration. The patient actually improved much quicker than expected. The following morning the patient appeared well, had no telemetry events, and Cr had improved to 2.13 with a potassium of 5.4. He had no episodes of diarrhea while here, so unable to test if recurrent c. difficile infection was present but given resolution this was deemed unlikely. Patient also had an elevated INR on admission, was given a dose of vitamin K, with improvement the following AM. He can resume his prior warfarin dosing and should have close monitoring of the INR for possible dose adjustments. Exam Vital Signs (past 8 hours): - 08/16/20 06:00 08/16/20 08:37 Temperature 98.0 F 97.2 F L Pulse Rate 76 65 Respiratory Rate 16 16 Blood Pressure 110/64 135/66 Pulse Oximetry 96 98 Oxygen Delivery Method Room Air Oxygen Flow Rate 0 Narrative Exam Narrative: GENERAL: Alert and oriented male resting bed, in no acute distress at this time HEENT: Head normocephalic, atraumatic, EOMI, pupils reactive, face symmetric, moist mucous membranes NECK: Supple, full range of motion no JVD CARDIOVASCULAR: Regular rate and rhythm without murmurs, rubs or gallops. RESPIRATORY: Breath sounds equal bilaterally, no wheezes rales or rhonchi. ABDOMEN: Soft, nontender. Normoactive bowel sounds all 4 quadrants. No guarding or rebound, rigidity, no mass : No CVA tenderness EXTREMITIES: Normal range of motion, left foot heel posterior lateral aspect length 5.1 cm by with of 5.6 cm and a depth of 0.6 cm with open wound/ulceration with no surrounding erythema or any purulence from wound, right heel posterior ulceration 1.7 cm in length 1.2 cm in with 0.2 cm in depth. Note amputation of left 4th and 5th digits positive +2 edema to the left foot pulses intact bilaterally, patient has loss of pain bilaterally and decreased sensation in the left foot, present in the right foot. Note amputation of left index finger. NEUROLOGICAL: Cranial nerves II through XII grossly intact. Moving all extremities SKIN: Warm, dry, scaling, patient has noted bruising present to bilateral hands and wrist. Note left foot foot is cooler to touch than right. Objective Labs Result Diagrams: 08/15/20 15:20 08/16/20 08:10 Labs: Laboratory Results - last 24 hr 08/15/20 08/15/20 08/15/20 15:20 15:20 15:20 WBC 6.7 RBC 3.59 L Hgb 9.6 L Hct 29.7 L MCV 82.8 MCH 26.6 MCHC 32.2 RDW 17.0 H Plt Count 196 Neut % (Auto) 56.8 Lymph % (Auto) 23.3 L [place] % (Auto) 11.0 Eos % (Auto) 7.6 H Baso % (Auto) 1.3 Neut # (Auto) 3800 Lymph # (Auto) 1600 [place] # (Auto) 700 Eos # (Auto) 500 H Baso # (Auto) 100 PT 75.8 H INR 6.7 H* APTT 58 H Sodium 135 L Potassium 6.3 H* D Chloride 108 H Carbon Dioxide 23 BUN 48 H Creatinine 2.68 H Estimated GFR 23.4 L BUN/Creatinine Ratio 17.9 Glucose 171 H Hemoglobin A1c Calcium 8.9 Phosphorus Magnesium 1.3 L Total Creatine Kinase 49 L CK-MB (CK-2) TNP CK-MB (CK-2) Rel Index TNP Troponin I 0.016 Albumin TSH COVID-19 PCR 08/15/20 08/15/20 08/15/20 15:20 15:20 17:20 WBC RBC Hgb Hct MCV MCH MCHC RDW Plt Count Neut % (Auto) Lymph % (Auto) [place] % (Auto) Eos % (Auto) Baso % (Auto) Neut # (Auto) Lymph # (Auto) [place] # (Auto) Eos # (Auto) Baso # (Auto) PT INR APTT Sodium Potassium Chloride Carbon Dioxide BUN Creatinine Estimated GFR BUN/Creatinine Ratio Glucose Hemoglobin A1c 9.6 H Calcium Phosphorus Magnesium Total Creatine Kinase CK-MB (CK-2) CK-MB (CK-2) Rel Index Troponin I Albumin TSH 3.83 COVID-19 PCR Negative 08/16/20 08/16/20 08/16/20 07:26 08:10 08:10 WBC RBC Hgb Hct MCV MCH MCHC RDW Plt Count Neut % (Auto) Lymph % (Auto) [place] % (Auto) Eos % (Auto) Baso % (Auto) Neut # (Auto) Lymph # (Auto) [place] # (Auto) Eos # (Auto) Baso # (Auto) PT 32.7 H D INR 2.9 H APTT Sodium 136 L 136 L Potassium 5.4 H 5.4 H Chloride 112 H 112 H Carbon Dioxide 22 22 BUN 40 H 39 H Creatinine 2.20 H 2.13 H Estimated GFR 29.4 L 30.5 L BUN/Creatinine Ratio 18.2 18.3 Glucose 193 H 187 H Hemoglobin A1c Calcium 8.3 L 8.0 L Phosphorus 3.3 Magnesium 1.5 L Total Creatine Kinase CK-MB (CK-2) CK-MB (CK-2) Rel Index Troponin I Albumin 2.9 L TSH COVID-19 PCR Discharge Plan Discharge Plan Patient Disposition: Home Provider Discharge Comment: This is a patient from [facility] that was admitted with dehydration and CESARIO / hyperkalemia due to recent diarrhea. His diarrhea has seemingly resolved as no stool episodes here. It is unclear if he has recurrent C. difficile or not, but unable to test given lack of stool here. No medication changes are recommended. I cannot tell based on the available records if he remains on oral vancomycin or not at this time, although I would recommend he complete treatment for C. diff if he hasn't already. Daughter/POA is requesting endocrinology consultation for a continuous glucose monitor as an outpatient. Discharge orders & Medications Prescriptions: Continued atorvastatin 20 mg tablet 20 mg PO DAILY RF: 0 carvedilol 6.25 mg Tablet 6.25 mg PO BID RF: 0 (DME) BD AutoShield Duo Pen Needle 30 gauge x 3/16 needle MISCELLANEOUS RF: 0 insulin lispro [Humalog KwikPen Insulin] 100 unit/mL insulin pen 1 unit SUBCUT ACHS RF: 0 clopidogrel 75 mg Tablet 75 mg PO DAILY RF: 0 ferrous sulfate 325 mg (65 mg iron) Tablet 325 mg PO BID RF: 0 Lantus Solostar U-100 Insulin 100 unit/mL (3 mL) insulin pen 1 unit SUBCUT PRN MDD PRN PRN (Reason: Muscle Spasm) RF: 0 lisinopril 5 mg tablet 5 mg PO QAM RF: 0 loratadine [Allergy Relief (loratadine)] 10 mg Tablet 10 mg PO PRN PRN (Reason: Allergic Symptoms) RF: 0 melatonin 3 mg Capsule 3 mg PO BEDTIME MDD prn PRN (Reason: Acid Reflux) RF: 0 metoclopramide HCl 10 mg tablet 10 mg PO BID RF: 0 nicotine 14 mg/24 hr Patch 24 Hour 14 mg transdermal DAILY RF: 0 Diet/Activity/Treatments Diet: Diet as Tolerated and Carb-consistent/Diabetic Activity: As tolerated Visit Report/Discharge Packet Instructions: Diarrhea, Chronic Kidney Disease, DI for Hyperkalemia, DI for Hypomagnesemia Visit Report Forms: Patient Portal/API, Stroke Signs & Symptoms Discharges patient from system. Discharge Date/Time: 08/16/20 13:10 Quality VTE Deep Vein Thrombosis/Pulmonary Embolism Present on Admission: No
[2020-08-16] MEDS: MAGNESIUM SULFATE 2 GM/50 ML PIGGYBACK IV (10:18)
--- NOTE | 2020-08-16 11:23 | DIET.PN ---
Dietary Progress Note Assessment: 75y male admitted c CESARIO and hyperkalemia and hypo magnesium. Pt reports diarrhea for past 2 weeks up to 10 times/d. pMHx of insulin dependent T2DM, HTN, and HLD. Patient reports he was being treated for 5 weeks at [facility] for wound care of left diabetic foot infection ulceration with cellulitis, necrosis of the Achilles and suspected osteo of the left calcaneus. Pt returned to home at [facility] for 9 days prior to admit. Pt scheduled to discharge today and is eager to get home to his who has mild/beginning dementia. Pt reports choosing to eat more bananas and potatoes because of his decreased appetite while experiencing the diarrhea. Pt reports not liking any vegetables except pickled beets. 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 Pt says he has had diabetes for 47years and typically checks his blood glucose 4-5x/d. Pt says typically he checks before meals and is given insulin based on his expected meal. Pt reports having an incident with low blood sugar of 30 required an emergency room visit from two weeks ago. Pt reports that his nurse gave him lantis based on what his meal was going to consist of and within the 4 minutes it took for her to go grab his food his blood sugar dropped from 212 to 69. Pt reports that the insulin typically does not work that fast and his body has never reacted like this before. By the time paramedics arrived his blood glucose was 30. Following this incident, pt reports that his facility is trying to keep his blood sugar between 200 and 250 in order to prevent a repeat of this incident. Pt reports that he feels best c BG of 150. Pt seems to have a good understanding of how to match his insulin to blood sugar and meals but is hesitant due to this surprising hypoglycemic episode. Usual day: Breakfast: 2 pieces of zheng, eggs, fruit and corn flakes L: Often a peanut butter and jelly sandwich on white bread D: Mashed potatoes with some type of meat Snacks especially at night: fudgecicle, ice cream, potato chips, bananas Pt unsure if his fudgecicles and ice cream are sugar free but has always assumed since [facility] living knows he is diabetic. Pt is sleeping with his legs elevated on a recliner as his foot wounds continue to heal. Pt reports being unaware he has CKD. HT: 182.8cm WT:82kg BMI:24.5 Labs: A1c: 9.6H , K: 6.3H eGFR: 23.4L MNA: 10 @ risk Juarez:17 Nutrition Diagnosis: Excessive potassium intake r/t insufficient renal clearance and nutrition related knowledge deficit aeb pt reporting eating high potassium foods such as bananas and potatoes multiple times/d, K+ 6.3, eGFR 23.4, pt unaware of CKD dx and diet appropriate for CKD. Interventions: 1. Educated pt on importance of limiting high potassium foods. Limit bananas and potatoes to one serving/d. 2. Recc. keeping blood glucose below 200 in order to support healing. Pt plans to review his previous blood sugar/food logs and keep a record of his food, insulin and blood glucose for a few weeks. Diet Order: CCD
--- NOTE | 2020-08-16 11:39 | PT-IP ANOTE ---
checked on pt and pt refused PT. stated that he is going back to [facility] after his IV infusion. stated that he does not ambulate due to L heel wound and he is not suppose to put weight on it. usually is w/c bound and able to complete a pivot transfer without AD bed<>w/c/recliner. stated that he was taught how to do transfer when he went to [facility]. Pt stated that he does not need PT and refuse PT eval.
[2020-08-16 12:14] VITALS: BP 115/59; PULSE 73; RESP 16; TEMP 36.3; O2SAT 98
--- NOTE | 2020-08-16 13:20 | PC.NURSE ---
Transfer: Pt feels ready to transfer back to the facility. His is there and he is very concerned about her care there. Facility market survey representative already here and eval pt as to if he could return. He was cleared to go. Reviewed d/c packet. Signed order sheet given for facility. Questions answered. Pt transfered to facility using there van.
--- NOTE | 2020-08-16 14:14 | CM.DANOTE ---
DCP: Case received, EMR reviewed and met with patient. Introduced self and role. Was able to obtain information from patient regarding his baseline activity status, as well as his living situation. DCP assessment completed with information currently available. Patient is a 75 year old male who admitted yesterday afternoon to the care of the hospitalist team. PCP: Dr. Jimenez. Payer: confirmed: Medicare. Patient came to the hospital via wheel-chair secondary to having abnormal labs, as well as an increased INR. According to notes, patient was sent from [facility] disease [facility] due to abnormal labs. He had been having loose stools. Met with patient in his room. He is alert and oriented. Patient resides at [facility]. He stated, he lives at [address], with his . He stated that he walks on his own without any devices. Contacted Sylvia at [facility] to confirm that he is their patient, and to give her update. Asked if nursing would need to evaluate him before returning, and stated, she would send a nurse over when he is ready to discharge. Discussed patient during team rounds. Dr. Lopez stated that he anticipates discharging patient today, as he has not noted any loose stools while here. Contacted Sylvia at [facility], and she stated that she would send a nurse over to evaluate. Had Dr. Lopez sign med sheet, and faxed sheet and discharge summary over to [facility]. Anjelica nurse, stated that nurse from [facility] already assessed patient, and can pick him up at 1300. P: Patient is being discharged today back to [facility]. They will transport. Valeria Bui RN/Club Lounge Attendant
[2020-08-20 15:07] LABS: PT 1:1 NP 11.4 sec (9.1-12.0); aPTT 38.5 sec (22.9-30.2); aPTT NP Mix, 60 min incubate 30.2 sec (22.9-30.2); aPTT Normal Plasma 25.5 sec (22.9-30.2)
== END 2020-08-16 13:10 | DRG 683 ==
LOC: ED 16:43 → AC 08-16 09:32
PROVIDERS: Nurse Practitioner Family; Admitting Provider Internal Medicine; Emergency Provider Emergency Medicine; Referring Provider Emergency Medicine; Visit Provider Internal Medicine
DX: N17.9 Acute kidney failure, unspecified (principal); L97.429 Non-pressure chronic ulcer of left heel and midfoot with unspecified severity; E11.621 Type 2 diabetes mellitus with foot ulcer; E11.22 Type 2 diabetes mellitus with diabetic chronic kidney disease; I12.9 Hypertensive chronic kidney disease with stage 1 through stage 4 chronic kidney disease, or unspecified chronic kidney disease; E87.5 Hyperkalemia; E83.42 Hypomagnesemia; E86.0 Dehydration; N18.30 Chronic kidney disease, stage 3 unspecified; R19.7 Diarrhea, unspecified; I25.10 Atherosclerotic heart disease of native coronary artery without angina pectoris; E11.65 Type 2 diabetes mellitus with hyperglycemia; R79.1 Abnormal coagulation profile; Z11.59 Encounter for screening for other viral diseases; Z79.01 Long term (current) use of anticoagulants
CPT/HCPCS: 36415; 71045; 80048; 80053; 80069; 81003; 82550; 82962; 83036; 83735; 84443; 84484; 85025; 85610; 85611; 85730; 85732; 86140; 87635; 93005; 96361; 96365; 96375; 99284; 99291; J0610; J3430

== ENCOUNTER → 2020-08-20 14:08 | Outpatient (CLI) | payer MEDICARE, SELFPAY ==
[2020-08-15 18:18] VITALS: BMI 24.5
[2020-08-20 15:32] LABS: INR 1.7 (0.9-1.3); Prothrombin Time 19.3 SECONDS (10.1-12.7)
[2020-08-20 16:14] LABS: C-Reactive Protein Quant 1.2 mg/dL (<1.0)
== END ==
PROVIDERS: Referring Provider Family Medicine; Visit Provider Family Medicine
DX: I23.6 Thrombosis of atrium, auricular appendage, and ventricle as current complications following acute myocardial infarction (principal)
CPT/HCPCS: 36415; 85610; 86140

== ENCOUNTER → 2020-08-28 12:44 | Outpatient (ROUT) | payer MEDICARE, SELFPAY ==
[2020-08-15 18:18] VITALS: BMI 24.5
[2020-08-28 13:30] LABS: INR 2.7 (0.9-1.3); Prothrombin Time 30.7 SECONDS (10.1-12.7)
== END ==
PROVIDERS: Visit Provider Family Medicine
DX: Z79.899 Other long term (current) drug therapy (principal)
CPT/HCPCS: 36415; 85610

== ENCOUNTER 2020-09-04 17:11 | Emergency (ER) | payer MEDICARE, OTHER, SELFPAY ==
[2020-09-04 17:36] VITALS: BP 87/41; PULSE 68; RESP 16; TEMP 36.9; O2SAT 98; BMI 25.4
[2020-09-04 17:39] VITALS: BP 93/50
--- NOTE | 2020-09-04 17:41 | PC.NURSE ---
Reports nurse noticed bloody right eye this afternoon. Pt denies pain.
[2020-09-04 18:07] VITALS: BP 77/40; PULSE 79; RESP 20; TEMP 37.2; O2SAT 99
--- NOTE | 2020-09-04 18:19 | PC.NURSE ---
Pt yelling and wanting to see a doctor and go home. Lanker notified and in room with pt. Lanker notified of pt low BP, pt denies any symptoms.
--- NOTE | 2020-09-04 18:20 | ED_ITS ---
HPI - General Adult General Chief complaint: Eye Problems Stated complaint: Rt Eye Time Seen by Provider: 09/04/20 17:57 Source: patient Mode of arrival: Wheelchair Limitations: no limitations History of Present Illness HPI narrative: Patient is a 75-year-old male. Is on anticoagulation sent over from his care facility for concerns of blood in his right eye. Patient denies any pain. Denies any trauma. Denies any visual changes. States he has been itching his eye today although has not had any drainage. No fevers. Has been taking all his medications as directed Related Data Home Medications Medication Instructions Recorded Confirmed BD AutoShield Duo Pen Needle 08/15/20 08/15/20 Lantus Solostar U-100 Insulin 1 unit SUBCUT PRN PRN MDD PRN 08/15/20 08/15/20 atorvastatin 20 mg PO DAILY 08/15/20 08/15/20 carvedilol 6.25 mg PO BID 08/15/20 08/15/20 clopidogrel 75 mg PO DAILY 08/15/20 08/15/20 ferrous sulfate 325 mg PO BID 08/15/20 08/15/20 insulin lispro [Humalog KwikPen 1 unit SUBCUT ACHS 08/15/20 08/15/20 Insulin] lisinopril 5 mg PO QAM 08/15/20 08/15/20 loratadine [Allergy Relief 10 mg PO PRN PRN 08/15/20 08/15/20 (loratadine)] melatonin 3 mg PO BEDTIME PRN MDD prn 08/15/20 08/15/20 metoclopramide HCl 10 mg PO BID 08/15/20 08/15/20 nicotine 14 mg TRANSDERMAL DAILY 08/15/20 08/15/20 Allergies Allergy/AdvReac Type Severity Reaction Status Date / Time No Known Drug Allergies Allergy Verified 09/04/20 17:36 Review of Systems Constitutional Constitutional: Denies fever(s) Eyes Eyes: Denies blurry vision, Denies exophthalmos, Denies change in vision, Denies diplopia, Denies eye discharge, Reports itchy eyes (Right eye), Denies loss of peripheral vision, Denies loss of vision, Denies eye pain, Denies seeing flashes, Denies photophobia and Denies spots in vision Comments: Blood in the right eye per report ENT Ears, Nose, Mouth, and Throat: Denies otalgia, Denies nasal discharge, Denies tinnitus, Denies sinus pain, Denies sinus pressure, Denies sore throat and Denies throat swelling Cardiovascular Cardiovascular: Denies chest pain, Denies lightheadedness and Denies dyspnea Respiratory Respiratory: Denies cough and Denies dyspnea Gastrointestinal Gastrointestinal: Denies abdominal pain, Denies nausea and Denies vomiting Musculoskeletal Musculoskeletal: Denies arthralgias and Denies myalgias Integumentary/Breasts Skin/Breast: Denies lesions and Denies rash Neurologic Neurologic: Denies behavioral changes and Denies loss of vision Psychiatric Psychiatric: Denies behavioral changes Hematologic/Lymphatic Comments: On anticoagulation Allergic/Immunologic Allergic/Immunologic: Reports itchy eyes (Right eye) and Denies throat swelling Patient History Medical History 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, left, traumatic Apical mural thrombus following SD Cancer Cigarette nicotine dependence without complication Diabetic gastropathy Eccrine porocarcinoma of skin Hyperlipidemia associated with type 2 diabetes mellitus Insulin dependent diabetes mellitus Ischemic cardiomyopathy Right hip pain Right knee pain Stenosis of artery of left lower extremity Surgical History (Updated 08/15/20 @ 23:07 by MECHE Reagan) Amputation of left index finger Status post excisional debridement Family History (Updated 08/15/20 @ 23:00 by MECHE Reagan) Mother Diabetes mellitus Social History household members: spouse Smoking Status: Former smoker Smoking Status: Former smoker alcohol intake frequency: holidays/special occasions only Substance Use Type: does not use Exam Initial Vital Signs Initial Vital Signs: Vital Signs Temperature 98.4 F 09/04/20 17:36 Pulse Rate 68 09/04/20 17:36 Respiratory Rate 16 09/04/20 17:36 Blood Pressure 87/41 L 09/04/20 17:36 Pulse Oximetry 98 09/04/20 17:36 Const General: cooperative and comfortable Limitations: mental status not altered [facility] Head: normal to inspection and normocephalic Ears: hearing grossly normal bilaterally Nose: external nose normal Mouth: oral mucosae normal Eyes Alignment and Position: alignment normal Periorbital: periorbital findings normal Eyelids: eyelids normal Conjunctivae: conjunctival abnormality right subconjunctival hemorrhage; not on the left Pupils: PERRL EOM: EOM intact bilaterally Resp Effort & Inspection: normal respiratory effort Neuro General: patient alert, patient awake and patient oriented x3 Speech: speech normal Extrem General: capillary refill normal Psych Appearance: grossly normal and well kempt Course Vital Signs Vital signs: Vital Signs - 8 hr 09/04/20 17:36 09/04/20 17:39 09/04/20 18:07 Temperature 98.4 F 99.0 F Pulse Rate 68 79 Respiratory Rate 16 20 Blood Pressure 87/41 L 93/50 L 77/40 L Pulse Oximetry 98 99 09/04/20 18:56 Temperature Pulse Rate 68 Respiratory Rate Blood Pressure 98/55 L Pulse Oximetry 94 Medical Decision Making MDM Narrative Medical decision making narrative: Well-appearing. Physical exam consistent with a subconjunctival hemorrhage. Has no vision changes. Suspected secondary to the blood thinners that he is taking. He denies any trauma. There was repo rts that the patient had a systolic blood pressure greater than 100 earlier today however here in the emergency department he was more on the hypotensive side. He denies any lightheadedness. Denies any chest pain. No headache. Sits in the chair most the day secondary to issues with his feet to include osteomyelitis and prior surgeries. Patient is asymptomatic secondary to this hypotension. I have him continue his medications. He was given strict return precautions with regard to his right eye symptoms and also his blood pressure. He expressed understanding and agreement. Discharge Plan Departure Patient Disposition: Home Clinical Impression: Hypotension Subconjunctival hemorrhage Qualifiers: Laterality: right Qualified Code(s): H11.31 - Conjunctival hemorrhage, right eye Instructions: DI for Subconjunctival Hemorrhage Activity Restrictions/Additional Instructions: Recommend that you continue all of your medications to include your blood thinners. I recommend that you get your INR checked. This can be done by your primary provider. Also recommend you contact her primary provider for further evaluation. Return to the emergency department if you start to have vision problems or pain in your right eye or bleeding issues. Prescriptions: No Action atorvastatin 20 mg tablet 20 mg PO DAILY RF: 0 carvedilol 6.25 mg Tablet 6.25 mg PO BID RF: 0 (DME) BD AutoShield Duo Pen Needle 30 gauge x 3/16 needle MISCELLANEOUS RF: 0 insulin lispro [Humalog KwikPen Insulin] 100 unit/mL insulin pen 1 unit SUBCUT ACHS RF: 0 clopidogrel 75 mg Tablet 75 mg PO DAILY RF: 0 ferrous sulfate 325 mg (65 mg iron) Tablet 325 mg PO BID RF: 0 Lantus Solostar U-100 Insulin 100 unit/mL (3 mL) insulin pen 1 unit SUBCUT PRN MDD PRN PRN (Reason: Muscle Spasm) RF: 0 lisinopril 5 mg tablet 5 mg PO QAM RF: 0 loratadine [Allergy Relief (loratadine)] 10 mg Tablet 10 mg PO PRN PRN (Reason: Allergic Symptoms) RF: 0 melatonin 3 mg Capsule 3 mg PO BEDTIME MDD prn PRN (Reason: Acid Reflux) RF: 0 metoclopramide HCl 10 mg tablet 10 mg PO BID RF: 0 nicotine 14 mg/24 hr Patch 24 Hour 14 mg transdermal DAILY RF: 0 Referrals: Dolores Jimenez MD [Primary Care Provider] -
[2020-09-04 18:56] VITALS: BP 98/55; PULSE 68; O2SAT 94
== END 2020-09-04 19:05 | disposition home or self-care (01) ==
PROVIDERS: Emergency Provider Emergency Medicine; PCP Family Medicine
DX: H11.31 Conjunctival hemorrhage, right eye (principal); I95.9 Hypotension, unspecified; Z79.01 Long term (current) use of anticoagulants
CPT/HCPCS: 99281

== ENCOUNTER → 2020-09-05 07:15 | Outpatient (ROUT) | payer MEDICARE, OTHER, SELFPAY ==
[2020-08-15 18:18] VITALS: BMI 24.5
[2020-09-05 08:41] LABS: Prothrombin Time 51.9 SECONDS (10.1-12.7)
[2020-09-05 08:52] LABS: INR 4.6 (0.9-1.3)
== END ==
PROVIDERS: PCP Family Medicine; Visit Provider Family Medicine
DX: I48.91 Unspecified atrial fibrillation (principal)
CPT/HCPCS: 36415; 85610

== ENCOUNTER 2020-09-07 22:11 | Emergency (ER) | payer MEDICARE, OTHER, SELFPAY ==
[2020-09-07 22:15] VITALS: BP 100/52; PULSE 86; RESP 30; TEMP 37.3; O2SAT 97; BMI 22.6
--- NOTE | 2020-09-07 22:19 | DI.RAD.S_ITS ---
PROCEDURE: XR CHEST 1V INDICATIONS: COVID + with SOB TECHNIQUE: One view of the chest was acquired. COMPARISON: [facility], CR, XR CHEST 1V, 08/15/2020, 14:32. [facility], CR, XR CHEST 2VW, 09/26/2016, 10:25. FINDINGS: Surgical changes and devices: Left axillary clips are seen. Lungs and pleura: Mild bilateral patchy interstitial infiltrates are seen. Low lung volumes are noted. This causes a crowded appearance to the lung markings and limits evaluation. Mild elevation of the left hemidiaphragm can be seen. No pneumothorax or large pleural effusions can be seen. Mediastinum: Mediastinal contours appear normal. Heart size is normal. Bones and chest wall: No suspicious bony lesions. Age-appropriate bony degenerative changes are seen. Overlying soft tissues appear unremarkable. IMPRESSION: Mild, patchy bilateral interstitial infiltrates are seen, which are consistent with the given clinical history of COVID pneumonia. Note: No significant discrepancy from the preliminary report. Dictated by: Didier Neumann M.D. on 09/08/2020 at 7:21 Approved by: Didier Neumann M.D. on 09/08/2020 at 7:23
--- NOTE | 2020-09-07 22:31 | ED_ITS ---
HPI - General Adult General Chief complaint: Fever Stated complaint: SOB, Covid + Time Seen by Provider: 09/07/20 22:17 Source: patient Mode of arrival: EMS Limitations: no limitations History of Present Illness HPI narrative: Patient is a 75-year-old male. Insulin-dependent diabetic, anticoagulated on Coumadin for what appears to be a prior heart issue who is seen here in the emergency department a couple days ago for a right-sided subconjunctival hemorrhage. He was diagnosed yesterday with COVID-19. He is a resident of a living facility across the street from the hospital. He is there because he has chronic bilateral feet diabetic ulcers and also because his has dementia. They are both staying in the facility. They were both diagnosed with COVID yesterday. I received a call from the medical provider from the facility stating that patient was being sent to the emergency department secondary for fever and progressively worsening shortness of breath over the past 24 hours. Was initially reported the patient did not want to come but was encouraged to come by his children. He does admit to being short of breath. Denies any chest pain. He states that overall he does not feel any worse now than what he did earlier in the day but does admit that he feels worse today than what he did yesterday. He has known supratherapeutic INR so hit has been held for at least the past 24 hours if not potentially a little longer. Despite his bilateral lower extremity feet ulcerations he he is partially ambulatory. He is not currently on IV or oral antibiotics for these. Related Data Home Medications Medication Instructions Recorded Confirmed BD AutoShield Duo Pen Needle 08/15/20 08/15/20 Lantus Solostar U-100 Insulin 1 unit SUBCUT PRN PRN MDD PRN 08/15/20 08/15/20 atorvastatin 20 mg PO DAILY 08/15/20 08/15/20 carvedilol 6.25 mg PO BID 08/15/20 08/15/20 clopidogrel 75 mg PO DAILY 08/15/20 08/15/20 ferrous sulfate 325 mg PO BID 08/15/20 08/15/20 insulin lispro [Humalog KwikPen 1 unit SUBCUT ACHS 08/15/20 08/15/20 Insulin] lisinopril 5 mg PO QAM 08/15/20 08/15/20 loratadine [Allergy Relief 10 mg PO PRN PRN 08/15/20 08/15/20 (loratadine)] melatonin 3 mg PO BEDTIME PRN MDD prn 08/15/20 08/15/20 metoclopramide HCl 10 mg PO BID 08/15/20 08/15/20 nicotine 14 mg TRANSDERMAL DAILY 08/15/20 08/15/20 Allergies Allergy/AdvReac Type Severity Reaction Status Date / Time No Known Drug Allergies Allergy Verified 09/04/20 17:36 Review of Systems Constitutional Constitutional: Denies fatigue and Reports fever(s) Eyes Eyes: Denies change in vision ENT Ears, Nose, Mouth, and Throat: Denies sore throat Cardiovascular Cardiovascular: Denies chest pain and Reports dyspnea Respiratory Respiratory: Denies cough and Reports dyspnea Gastrointestinal Gastrointestinal: Denies abdominal pain, Denies change in bowel habits, Denies nausea and Denies vomiting Genitourinary Genitourinary: Denies dysuria Genitourinary: Denies dysuria Musculoskeletal Comments: No new changes to his musculoskeletal status Integumentary/Breasts Comments: No new changes to the skin ulcerations on his feet Neurologic Neurologic: Denies behavioral changes and Denies confusion Psychiatric Psychiatric: Denies behavioral changes and Denies confusion Endocrine Endocrine: Denies fatigue Hematologic/Lymphatic Comments: On anticoagulation Allergic/Immunologic Allergic/Immunologic: Denies urticaria Patient History Medical History 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, left, 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 Cigarette nicotine dependence without complication Diabetic gastropathy Eccrine porocarcinoma of skin Hyperlipidemia associated with type 2 diabetes mellitus Insulin dependent diabetes mellitus Ischemic cardiomyopathy Right hip pain Right knee pain Stenosis of artery of left lower extremity Surgical History Amputation of left index finger Status post excisional debridement Family History Mother Diabetes mellitus Social History household members: spouse Smoking Status: Former smoker Smoking Status: Former smoker alcohol intake frequency: holidays/special occasions only Substance Use Type: does not use Exam Initial Vital Signs Initial Vital Signs: Vital Signs Temperature 99.1 F 09/07/20 22:15 Pulse Rate 86 09/07/20 22:15 Respiratory Rate 30 H 09/07/20 22:15 Blood Pressure 100/52 L 09/07/20 22:15 Pulse Oximetry 97 09/07/20 22:15 Const General: ill appearing Limitations: mental status not altered HENIN Head: normal to inspection and normocephalic Eyes Other: Right-sided subconjunctival hemorrhage appears the same as it did a couple days ago Chest Chest: No crepitus Resp Effort & Inspection: labored and tachypneic Auscultation: clear to auscultation bilaterally Cardio Rate: regular rate Rhythm: regular rhythm Pulses: radial pulses present GI Inspection: non-distended Palpation: soft Skin Other: Bilateral feet covered with the pressure ulcer boots in bandages Neuro General: patient alert, patient awake and patient oriented x3 Cognition: normal cognition Speech: speech normal Extrem General: capillary refill normal and No edema Psych Appearance: disheveled Scores GCS [place] coma scale eye opening: Spontaneous [place] coma scale verbal response: Orientated [place] coma scale motor response: Obey commands [place] coma scale total score: 15 Course Orders Ordered: ED Orders 09/07/20 22:19 XR chest 1V Stat 09/07/20 22:29 C-Reactive Protein Quant Stat Complete Blood Count AUTO DIFF Stat Comprehensive Metabolic Panel Stat D Dimer Stat Ferritin Stat Ketones (Beta-Hydroxybutyrate) Stat Lactate (Lactic Acid) Stat Lactate Dehydrogenase Stat Magnesium Stat NT-proBNP (BNP-Adult 18+) Stat Phosphorous Stat Procalcitonin Stat Prothrombin Time INR Stat Troponin & CK Cardiac Panel Stat 09/07/20 23:08 EKG-12 Lead Stat 09/07/20 23:11 Arterial Blood Gas Stat 09/07/20 23:31 VBG [Venous Blood Gas] Stat Sodium Chloride (Normal Saline 0.9%) 1,000 mls @ 125 mls/hr IV CONT BRIDGETTE Last Admin: 09/07/20 23:18 Dose: 125 mls/hr Documented by: MAUREEN Vital Signs Vital signs: Vital Signs - 8 hr 09/07/20 22:15 09/07/20 22:36 09/07/20 23:00 Temperature 99.1 F Pulse Rate 86 81 79 Respiratory Rate 30 H 23 24 Blood Pressure 100/52 L 99/46 L Pulse Oximetry 97 96 96 09/07/20 23:01 09/07/20 23:30 09/07/20 23:31 Temperature Pulse Rate 79 80 83 Respiratory Rate 23 28 H 30 H Blood Pressure 99/46 L 91/47 L Pulse Oximetry 96 97 93 Medical Decision Making Medical Records Medical records reviewed: Yes I reviewed the patient's medical records. Lab Data Lab results reviewed: Yes I reviewed the patient's lab results. Result diagrams: 09/07/20 22:29 09/07/20 22:29 Labs: Lab Results 09/07/20 09/07/20 09/07/20 Range/Units 22:29 22:29 22:29 WBC 4.6 (4.5-11.0) X10^3/uL RBC 3.42 L (4.5-5.9) X10^6/uL Hgb 9.1 L (13.5-17.5) g/dL Hct 27.8 L (41-53) % MCV 81.4 (80-100) fL MCH 26.5 (26-34) PG MCHC 32.6 (30-36) % RDW 18.2 H (11.6-14.8) % Plt Count 126 L (150-400) X10^3/uL Neut % (Auto) 72.7 (50-75) % Lymph % (Auto) 13.0 L (25-40) % [place] % (Auto) 13.3 (3-14) % Eos % (Auto) 0.0 L (2-4) % Baso % (Auto) 1.0 (0-2) % Neut # (Auto) 3300 (6130-1606) /uL Lymph # (Auto) 600 L (3813-8668) /uL [place] # (Auto) 600 (0-900) /uL Eos # (Auto) 0 (0-450) /uL Baso # (Auto) 0 (0-100) /uL PT (10.1-12.7) SECONDS INR (0.9-1.3) D-Dimer 716 H (<230) ng/mL VBG pH (7.33-7.43) VBG pCO2 (45-50) mmHg VBG pO2 (35-45) mmHg VBG HCO3 (23-28) mmol/L VBG Total CO2 (24-29) mmol/L VBG O2 Saturation (70-75) % VBG Base Excess (0-4) mmol/L Sodium (137-145) mmol/L Potassium (3.4-5.1) mmol/L Chloride (98-107) mmol/L Carbon Dioxide (22-32) mmol/L BUN (9-20) mg/dL Creatinine (0.66-1.25) mg/dL Estimated GFR (>60) mL/min BUN/Creatinine Ratio (6-22) Glucose (80-110) mg/dL Lactate (0.7-2.1) mmol/L Calcium (8.4-10.2) mg/dL Phosphorus (2.3-3.7) mg/dL Magnesium (1.6-2.3) mg/dL Ferritin (18-464) ng/mL Total Bilirubin (0.2-1.3) mg/dL AST (17-59) IU/L ALT (<50) IU/L Alkaline Phosphatase (38-126) U/L Lactate Dehydrogenase (313-618) U/L Total Creatine Kinase (55-170) U/L CK-MB (CK-2) (<2.37) ng/mL CK-MB (CK-2) Rel Index (1.5-5.0) % Troponin I (0.01-0.034) ng/mL C-Reactive Protein (<1.0) mg/dL NT-Pro-B Natriuret Pep (<125) pg/mL Total Protein (6.3-8.2) g/dL Albumin (3.5-5.0) g/dL Globulin (1.7-4.1) g/dL Albumin/Globulin Ratio (1.0-2.8) Procalcitonin 0.96 H (<0.5) ng/mL Ketones (<0.27) mmol/L 09/07/20 09/07/20 09/07/20 Range/Units 22:29 22:29 22:29 WBC (4.5-11.0) X10^3/uL RBC (4.5-5.9) X10^6/uL Hgb (13.5-17.5) g/dL Hct (41-53) % MCV (80-100) fL MCH (26-34) PG MCHC (30-36) % RDW (11.6-14.8) % Plt Count (150-400) X10^3/uL Neut % (Auto) (50-75) % Lymph % (Auto) (25-40) % [place] % (Auto) (3-14) % Eos % (Auto) (2-4) % Baso % (Auto) (0-2) % Neut # (Auto) (0012-8044) /uL Lymph # (Auto) (9609-4968) /uL [place] # (Auto) (0-900) /uL Eos # (Auto) (0-450) /uL Baso # (Auto) (0-100) /uL PT 60.9 H D (10.1-12.7) SECONDS INR 5.4 H* (0.9-1.3) D-Dimer (<230) ng/mL VBG pH (7.33-7.43) VBG pCO2 (45-50) mmHg VBG pO2 (35-45) mmHg VBG HCO3 (23-28) mmol/L VBG Total CO2 (24-29) mmol/L VBG O2 Saturation (70-75) % VBG Base Excess (0-4) mmol/L Sodium 123 L (137-145) mmol/L Potassium 4.7 (3.4-5.1) mmol/L Chloride 98 (98-107) mmol/L Carbon Dioxide 14 L (22-32) mmol/L BUN 102 H (9-20) mg/dL Creatinine 4.82 H (0.66-1.25) mg/dL Estimated GFR 11.9 L (>60) mL/min BUN/Creatinine Ratio 21.2 (6-22) Glucose 307 H (80-110) mg/dL Lactate 1.2 (0.7-2.1) mmol/L Calcium 8.3 L (8.4-10.2) mg/dL Phosphorus (2.3-3.7) mg/dL Magnesium (1.6-2.3) mg/dL Ferritin 230 (18-464) ng/mL Total Bilirubin 0.5 (0.2-1.3) mg/dL AST 21 (17-59) IU/L ALT 13 (<50) IU/L Alkaline Phosphatase 71 (38-126) U/L Lactate Dehydrogenase 353 (313-618) U/L Total Creatine Kinase 174 H (55-170) U/L CK-MB (CK-2) 3.57 H (<2.37) ng/mL CK-MB (CK-2) Rel Index 2.1 (1.5-5.0) % Troponin I 0.110 H (0.01-0.034) ng/mL C-Reactive Protein 17.1 H (<1.0) mg/dL NT-Pro-B Natriuret Pep 5010 H (<125) pg/mL Total Protein 7.0 (6.3-8.2) g/dL Albumin 3.4 L (3.5-5.0) g/dL Globulin 3.6 (1.7-4.1) g/dL Albumin/Globulin Ratio 0.9 L (1.0-2.8) Procalcitonin (<0.5) ng/mL Ketones (<0.27) mmol/L 09/07/20 09/07/20 Range/Units 22:29 23:31 WBC (4.5-11.0) X10^3/uL RBC (4.5-5.9) X10^6/uL Hgb (13.5-17.5) g/dL Hct (41-53) % MCV (80-100) fL MCH (26-34) PG MCHC (30-36) % RDW (11.6-14.8) % Plt Count (150-400) X10^3/uL Neut % (Auto) (50-75) % Lymph % (Auto) (25-40) % [place] % (Auto) (3-14) % Eos % (Auto) (2-4) % Baso % (Auto) (0-2) % Neut # (Auto) (7342-4789) /uL Lymph # (Auto) (0820-5120) /uL [place] # (Auto) (0-900) /uL Eos # (Auto) (0-450) /uL Baso # (Auto) (0-100) /uL PT (10.1-12.7) SECONDS INR (0.9-1.3) D-Dimer (<230) ng/mL VBG pH 7.29 L (7.33-7.43) VBG pCO2 23.8 L (45-50) mmHg VBG pO2 28 L (35-45) mmHg VBG HCO3 12 L (23-28) mmol/L VBG Total CO2 12 L (24-29) mmol/L VBG O2 Saturation 48 L (70-75) % VBG Base Excess -15.0 L (0-4) mmol/L Sodium (137-145) mmol/L Potassium (3.4-5.1) mmol/L Chloride (98-107) mmol/L Carbon Dioxide (22-32) mmol/L BUN (9-20) mg/dL Creatinine (0.66-1.25) mg/dL Estimated GFR (>60) mL/min BUN/Creatinine Ratio (6-22) Glucose (80-110) mg/dL Lactate (0.7-2.1) mmol/L Calcium (8.4-10.2) mg/dL Phosphorus 4.0 H (2.3-3.7) mg/dL Magnesium 1.4 L (1.6-2.3) mg/dL Ferritin (18-464) ng/mL Total Bilirubin (0.2-1.3) mg/dL AST (17-59) IU/L ALT (<50) IU/L Alkaline Phosphatase (38-126) U/L Lactate Dehydrogenase (313-618) U/L Total Creatine Kinase (55-170) U/L CK-MB (CK-2) (<2.37) ng/mL CK-MB (CK-2) Rel Index (1.5-5.0) % Troponin I (0.01-0.034) ng/mL C-Reactive Protein (<1.0) mg/dL NT-Pro-B Natriuret Pep (<125) pg/mL Total Protein (6.3-8.2) g/dL Albumin (3.5-5.0) g/dL Globulin (1.7-4.1) g/dL Albumin/Globulin Ratio (1.0-2.8) Procalcitonin (<0.5) ng/mL Ketones 1.05 H (<0.27) mmol/L Imaging Data Chest x-ray: Radiologist's Impression: Patchy bilateral infiltrates may reflect pneumonia ECG Data Attestation: I personally reviewed and interpreted this ECG as follows: Prior ECG tracings: available for review Interpretation: Sinus rhythm Ventricular rate 87 Left axis deviation Left bundle-branch block Similar appearanc to prior EKGs e MDM Narrative Medical decision making narrative: Report was that the patient was initially reluctant to come to the emergency department however was persuaded to do so by his family. Upon arrival patient was not hypoxic (lowest O2 saturation 93%) however was tachypneic and in moderate respiratory distress. No retractions. He had clear lung exam is chest x-ray does show bilateral pneumonia. He was diagnosed with coronavirus yesterday. His is also positive. Patient is supratherapeutic on his INR however this is known. Besides the right subconjunctival hemorrhage which is similar appearance to a couple days ago there was no other signs of bleeding. Will hold on any acute reversal. His bilateral feet wounds are at baseline per the patient. I have no other signs of infection except for the COVID-19. Patient was hyperglycemic. Was acidotic on his VBG did have ketones in his urine however does not have an anion gap. I feel that this is most likely related to his respiratory issues. Will hold on insulin for now. Patient is hyponatremic. Has an acute on chronic kidney in [facility]. Patient's blood pressure has been systolic in the 90s however this is baseline for him. When he was here a couple days ago in the emergency department he was sitting in a wheelchair and his systolic blood pressure was in the 80s. He is asymptomatic from this. Patient is receiving maintenance fluids. EKG today similar to prior EKGs. Is not having chest pain. Does have a elevated troponin compared to prior. This is most likely related to the COVID-19 and also his kidney injury. Will hold on heparin. I feel given his high likelihood of decline, his elevated troponin, his current kidney function, his current respiratory status that transfer to higher level care with specialist consultation be warranted in his case. I did discuss this with the patient and he expressed understanding and agreement. I discussed the case with Dr. Nieto at [facility] who accepts the patient in transport. Patient is currently stable for transfer. Critical Care Time Critical Care Time Critical Care Time: Yes Total Critical Care Time: 35 Attestation: The high probability of a clinically significant, sudden or life threatening d eterioration of the respiratory, cardiovascular, endocrine, system(s) required my full and direct attention, intervention and personal management. The aggregate critical care time was 35 minutes. This time is in addition to time spent performing reported procedures but includes the following: [X] Data Review and interpretation [X] Patient assessment and monitoring of vital signs X] Documentation [X] Medication orders and management Discharge Plan Departure Patient Disposition: [facility] Clinical Impression: Pneumonia due to 2019 novel coronavirus, Supratherapeutic INR, Hyponatremia, Hyperglycemia, Elevated troponin Acute on chronic kidney failure Qualifiers: Acute renal failure type: unspecified Chronic kidney disease stage: unspecified stage Qualified Code(s): N17.9 - Acute kidney failure, unspecified Prescriptions: No Action atorvastatin 20 mg tablet 20 mg PO DAILY RF: 0 carvedilol 6.25 mg Tablet 6.25 mg PO BID RF: 0 (DME) BD AutoShield Duo Pen Needle 30 gauge x 3/16 needle MISCELLANEOUS RF: 0 insulin lispro [Humalog KwikPen Insulin] 100 unit/mL insulin pen 1 unit SUBCUT ACHS RF: 0 clopidogrel 75 mg Tablet 75 mg PO DAILY RF: 0 ferrous sulfate 325 mg (65 mg iron) Tablet 325 mg PO BID RF: 0 Lantus Solostar U-100 Insulin 100 unit/mL (3 mL) insulin pen 1 unit SUBCUT PRN MDD PRN PRN (Reason: Muscle Spasm) RF: 0 lisinopril 5 mg tablet 5 mg PO QAM RF: 0 loratadine [Allergy Relief (loratadine)] 10 mg Tablet 10 mg PO PRN PRN (Reason: Allergic Symptoms) RF: 0 melatonin 3 mg Capsule 3 mg PO BEDTIME MDD prn PRN (Reason: Acid Reflux) RF: 0 metoclopramide HCl 10 mg tablet 10 mg PO BID RF: 0 nicotine 14 mg/24 hr Patch 24 Hour 14 mg transdermal DAILY RF: 0 Referrals: Dolores Jimenez MD [Primary Care Provider] -
[2020-09-07 22:36] VITALS: BP 99/46; PULSE 81; RESP 23; O2SAT 96
[2020-09-07 22:39] LABS: Add Manual Diff / Slide Review NO; Basophils Absolute Auto 0 /uL (0-100); Eosinophils Absolute Auto 0 /uL (0-450); Hematocrit 27.8 % (41-53); Hemoglobin 9.1 g/dL (13.5-17.5); Lymphocytes Absolute Auto 600 /uL (1100-4500); Mean Corpuscular HGB Conc 32.6 % (30-36); Mean Corpuscular Hemoglobin 26.5 PG (26-34); Mean Corpuscular Volume 81.4 fL (80-100); Monocytes Absolute Auto 600 /uL (0-900); Monocytes Percent Auto 13.3 % (3-14); Neutrophils Absolute Auto 3300 /uL (1500-7000); Neutrophils Percent Auto 72.7 % (50-75); Platelet Count 126 X10^3/uL (150-400); Red Blood Cell Count 3.42 X10^6/uL (4.5-5.9); Red Cell Distribution Width 18.2 % (11.6-14.8); White Blood Cell Count 4.6 X10^3/uL (4.5-11.0)
[2020-09-07 22:48] LABS: Lactate (Lactic Acid) 1.2 mmol/L (0.7-2.1)
[2020-09-07 22:50] LABS: D Dimer 716 ng/mL (<230)
[2020-09-07 22:53] LABS: Alanine Aminotransferase 13 IU/L (<50); Albumin 3.4 g/dL (3.5-5.0); Albumin Globulin Ratio 0.9 (1.0-2.8); Alkaline Phosphatase 71 U/L (38-126); Aspartate Aminotransferase 21 IU/L (17-59); BUN Creatinine Ratio 21.2 (6-22); Bilirubin Total 0.5 mg/dL (0.2-1.3); Blood Urea Nitrogen 102 mg/dL (9-20); Calcium 8.3 mg/dL (8.4-10.2); Carbon Dioxide 14 mmol/L (22-32); Chloride 98 mmol/L (98-107); Creatine Kinase 174 U/L (55-170); Estimated Glomerular Filt Rate 11.9 mL/min (>60); Globulin 3.6 g/dL (1.7-4.1); Glucose 307 mg/dL (80-110); HEMOLYSIS < 15 (0-50); Potassium 4.7 mmol/L (3.4-5.1); Sodium 123 mmol/L (137-145)
[2020-09-07 23:00] VITALS: PULSE 79; RESP 24; O2SAT 96
[2020-09-07 23:01] VITALS: BP 99/46; PULSE 79; RESP 23; O2SAT 96
[2020-09-07 23:01] LABS: Prothrombin Time 60.9 SECONDS (10.1-12.7)
[2020-09-07 23:02] LABS: INR 5.4 (0.9-1.3)
[2020-09-07 23:05] LABS: NT-proBNP (BNP-Adult 18+) 5010 pg/mL (<125)
[2020-09-07 23:07] LABS: CKMB % Relative Index 2.1 % (1.5-5.0); Creatine Kinase MB 3.57 ng/mL (<2.37)
[2020-09-07 23:09] LABS: Lactate Dehydrogenase 353 U/L (313-618); Procalcitonin 0.96 ng/mL (<0.5)
[2020-09-07] MEDS: SODIUM CHLORIDE 0.9% 1,000 ML 125 ML IV (23:18)
[2020-09-07 23:21] LABS: C-Reactive Protein Quant 17.1 mg/dL (<1.0)
[2020-09-07 23:24] LABS: Magnesium 1.4 mg/dL (1.6-2.3)
[2020-09-07 23:26] LABS: Ketones (Beta-Hydroxybutyrate) 1.05 mmol/L (<0.27)
[2020-09-07 23:28] LABS: Ferritin 230 ng/mL (18-464)
[2020-09-07 23:30] VITALS: PULSE 80; RESP 28; O2SAT 97
[2020-09-07 23:31] VITALS: BP 91/47; PULSE 83; RESP 30; O2SAT 93
--- NOTE | 2020-09-07 23:39 | PC.NURSE ---
Provider notified of hypotensive BP. Patient alert and oriented and denies dizziness. NS running as ordered into IV at 125ml/hr.
[2020-09-07 23:58] LABS: HCO3 VBG 12 mmol/L (23-28); Oxygen Saturation VBG 48 % (70-75); PCO2 VBG 23.8 mmHg (45-50); PO2 VBG 28 mmHg (35-45); Total CO2 VBG 12 mmol/L (24-29); pH VBG 7.29 (7.33-7.43)
[2020-09-08] VITALS: BP 92/44; PULSE 77; RESP 26; O2SAT 96
[2020-09-08 00:30] VITALS: PULSE 83; RESP 27; O2SAT 99
[2020-09-08 00:31] VITALS: PULSE 83; RESP 27; O2SAT 99
[2020-09-08 00:59] VITALS: PULSE 80; RESP 26; O2SAT 97
[2020-09-08 01:00] VITALS: BP 91/49
== END 2020-09-08 01:05 | disposition short-term general hospital (02) ==
PROVIDERS: Emergency Provider Emergency Medicine; PCP Family Medicine
DX: U07.1 COVID-19 (principal); J12.89 Other viral pneumonia; E87.1 Hypo-osmolality and hyponatremia; R77.8 Other specified abnormalities of plasma proteins; R79.1 Abnormal coagulation profile; E11.65 Type 2 diabetes mellitus with hyperglycemia; Z79.4 Long term (current) use of insulin; Z79.01 Long term (current) use of anticoagulants; N17.9 Acute kidney failure, unspecified
CPT/HCPCS: 36415; 71045; 80053; 82009; 82550; 82553; 82728; 82805; 83605; 83615; 83735; 83880; 84100; 84145; 84484; 85025; 85379; 85610; 86140; 93005; 96360; 96361; 99283; 99284; 99291